=== PATIENT | male | born 1965 | race Caucasian/White ===

== ENCOUNTER → 2017-12-01 | Outpatient (CLI) | payer BC ==
[2017-12-01 12:53] LABS: BASO % 1.1 %; EOS % 5.2 %; EOS ABS # 0.46 K/uL (0-0.5); HEMATOCRIT 44.4 % (42-52); HEMOGLOBIN 15.7 g/dL (14.0-18.0); IG# 0.09 K/uL (0.00-0.02); LYMPH ABS # 2.91 K/uL (1.2-3.4); MEAN CELL VOLUME 88.3 fL (80-100); MEAN CORPUSCULAR HEMOGLOBIN 31.2 pg (25-34); MEAN CORPUSCULAR HGB CONC 35.4 g/dl (32-36); MONO % 13.5 %; MONO ABS # 1.19 K/uL (0.11-0.59); NEUT % 46.2 %; NEUT ABS # 4.07 K/uL (1.4-6.5); PLATELET COUNT 385 K/uL (130-400); RED CELL DISTRIBUTION WIDTH CV 13.3 % (11.5-14.5); RED CELL DISTRIBUTION WIDTH SD 42.8 fL (36.4-46.3); WHITE BLOOD COUNT 8.82 K/uL (4.8-10.8)
[2017-12-01 13:37] LABS: ALBUMIN 3.9 gm/dl (3.4-5.0); ALT/SGPT 46 U/L (12-78); BLOOD UREA NITROGEN 16 mg/dl (7-18); CALCIUM 9.2 mg/dl (8.5-10.1); CARBON DIOXIDE 28 mmol/L (21-32); CHOLESTEROL 214 mg/dl (0-200); CREATININE 0.88 mg/dl (0.60-1.40); GLUCOSE 101 mg/dl (70-99); SODIUM 135 mmol/L (136-145)
[2017-12-01 13:43] LABS: ALKALINE PHOSPHATASE 83 U/L (45-117); AST/SGOT 24 U/L (15-37); LDL CHOLESTEROL CALCULATED 115 mg/dl; TOTAL PROTEIN 7.6 gm/dl (6.4-8.2)
== END | disposition home or self-care (01) ==
LOC: C.LABBFT 11:00
PROVIDERS: ATTEND Internal Medicine
DX: R00.2 Palpitations (principal)

== ENCOUNTER → 2017-12-30 | Outpatient (CLI) | payer BC ==
[2017-12-30 12:49] LABS: ALT/SGPT 52 U/L (12-78); AST/SGOT 32 U/L (15-37); BLOOD UREA NITROGEN 19 mg/dl (7-18); CALCIUM 8.9 mg/dl (8.5-10.1); CARBON DIOXIDE 26 mmol/L (21-32); CREATININE 0.98 mg/dl (0.60-1.40); GLUCOSE 117 mg/dl (70-99); POTASSIUM 2.9 mmol/L (3.5-5.1); SODIUM 137 mmol/L (136-145)
== END | disposition home or self-care (01) ==
LOC: C.LABBFT 07:53
PROVIDERS: ATTEND Nurse Practitioner
DX: E78.5 Hyperlipidemia, unspecified (principal)

== ENCOUNTER → 2018-01-04 | Outpatient (CLI) | payer BC ==
[2018-01-04 12:02] LABS: BASO ABS # 0.08 K/uL (0-0.2); EOS % 4.6 %; EOS ABS # 0.38 K/uL (0-0.5); HEMOGLOBIN 15.2 g/dL (14.0-18.0); IG# 0.09 K/uL (0.00-0.02); LYMPH % 30.6 %; LYMPH ABS # 2.55 K/uL (1.2-3.4); MEAN CELL VOLUME 87.6 fL (80-100); MEAN CORPUSCULAR HGB CONC 35.3 g/dl (32-36); MONO % 14.5 %; MONO ABS # 1.21 K/uL (0.11-0.59); NEUT % 48.2 %; NEUT ABS # 4.01 K/uL (1.4-6.5); PLATELET COUNT 367 K/uL (130-400); RED CELL DISTRIBUTION WIDTH CV 13.2 % (11.5-14.5); RED CELL DISTRIBUTION WIDTH SD 42.2 fL (36.4-46.3); WHITE BLOOD COUNT 8.32 K/uL (4.8-10.8)
== END | disposition home or self-care (01) ==
LOC: C.LABBFT 09:34
PROVIDERS: ATTEND Nurse Practitioner
DX: R10.11 Right upper quadrant pain (principal)

== ENCOUNTER → 2018-03-24 | Outpatient (CLI) | payer BC ==
--- NOTE | 2018-03-29 19:12 | POLYSOMNOGRAPH REPORT ---
CLINICAL DATA: This is a 52-year-old male with BMI of 32.9, referred by Dr. Hermosillo and myself for a sleep study. He had a history of sleep apnea diagnosed over 16 years ago at the [facility]. He had a CPAP titration study and tried CPAP but did not tolerate it because of the noise of the machine. He has been having symptoms of sleep apnea recently. His [place] Sleepiness Score is 12/24. On the evening of 03/24/2018, a home sleep apnea test was performed using a [employer] type 3 monitor. RECORDING RESULTS: Total recording time was 10 hours. Patient's monitoring time and estimated sleep time was 7.1 hours. RESPIRATORY DATA: Severe sleep apnea was documented. The JOANNE was 48.6. There were 166 obstructive apneic episodes and 178 hypopneic episodes. The longest respiratory event was 60 seconds. OXIMETRY DATA: Significant hypoxemia was seen. Oxygen vanessa was 69%. Mean saturation was 90%. Time below 89% was 110 minutes. HEART RATE DATA: Heart rates ranged from 46 to 57 beats per minute. SNORING DATA: Snoring was recorded throughout the night. IMPRESSION: Severe sleep apnea/hypopnea with significant nocturnal hypoxemia. RECOMMENDATIONS: The patient should be considered for a repeat sleep study with CPAP and another trial of CPAP. If that is not tolerated, then consideration of an oral appliance could be considered. SAMUELD
== END | disposition home or self-care (01) ==
LOC: C.NEUR 07:45
PROVIDERS: ATTEND Internal Medicine Pulmonary Disease
DX: R53.83 Other fatigue (principal)

== ENCOUNTER → 2018-04-13 | Outpatient (CLI) | payer BC ==
--- NOTE | 2018-04-13 14:05 | PAP/PSG TECHNICIAN REPORT ---
[facility] Laster Hand Polysomnogram Report Study name: None Report date: 04/13/2018 Study date: 04/13/2018 Referring Physician: Florencio Davis M.D. Name: MOODY DANIELS Interpreting Physician: Florencio Davis M.D. Date of : 1965 Laster Hand: Genna Carrasquillo RPSGT. Sex: Male Age: 52 StudyType: PSG Weight: 211 lbs Height: 52 years, Height 5' 7" Neck Circum: BMI: 33.04 Medications: Advil, Amlodipine Besylate 10mg, ASA 81mg, Carvedilol 6.25mg, Hydrochlorothiazide 25mg, Nitrostat 0.4mg, Potassium Chloride ER 20meq, Ranitidine HCL 300mg, Rosuvastatin Calcium 10mg Patient History Patient has a history of BARRERA, but was intolerant to c-pap therapy at that time. Patient had increased symptoms and was re-evaluated using an at home sleep study. His AHI was 48.6 on that study. He is willing to try c-pap therapy again, not sure if he will be able to do it. ESS=12 Parameters Monitored NPSG: E1-M2, E2-M1, Fp1-M2, Fp2-M1, F3-M2, F4-M2, F4-M1, C3-M2, C4-M2, C4-M1, O1-M2, O2-M2, O2-M1, T3-M2, T4-M1, P3-M2, P4-M1, CHIN1, CHIN2, HR, EKG, Legs, PFLOW, SNOR, FLOW, CFLOW, Tidal Volume, THOR, ABDO, SpO2, PLTH, CPRESS, ETCO2 Wave, ETCO2, pH Sleep Architecture Sleep Stages Time at Lights Off 8:43:16 AM STAGES Time (min.) TST (%) Time at Lights On 1:07:46 PM Wake 66.5 -- Total Recording Time (TRT) 265.00 min. N1 25.0 13 Total Sleep Period (TSP) 246.0 min. N2 122.5 62 Total Sleep Time (TST) 198.0min. N3 20.0 10 Awake Time 67.0 min. REM 30.5 15 Wake after Sleep Onset 50.0 min. Sleep Efficiency (SE) 75 % Sleep Onset Latency (DEV) 16.5 min. Number of Stage 1 Shifts None Awakenings 23 Stage Changes 89 Number of REM periods 3 REM 30.5 15 REM Latency 57.0 min. NREM 167.5 85 Body Position Analysis Supine Right Left Side Prone Vertical Total Sleep Time (min.) 177.2 0.0 78.8 78.80 0.0 4.4 Total Sleep Time (%) 60% 0% 40% 40 0% N/A% Total Sleep Time REM (min.) 13.0 0.0 17.4 None 0.0 0.0 Total Sleep Time NREM (min.) 105.7 0.0 61.4 None 0.0 0.0 Intermittent Wake (min.) 58.5 0.0 3.2 None 0.0 4.4 Total Sleep Period (%) 65% None None None None None Arousals Myoclonus (PLM) * Events Count Index Events Count Index Spontaneous 9 3 Events Awake (PLMW) 0 0.0 Respiratory 27 8.2 Events Asleep w/ Arousal (PLMA) 2 0.6 PLM 2 1 Events Asleep w/o Arousal (PLMS) 23 7.0 Snoring 3 1 Total Asleep 25 7.6 Total 41 12 Total 25 6 Respiratory Analysis * CA OA MA CH H RERA Total Count 0 6 0 0 48 0 54 Index 0.0 1.8 0.0 0 14.5 0 16.4 Mean Duration 0.0 22.2 0.0 0.00 19.7 0.0 19.9 Longest Duration 0.0 26.8 0.0 0.00 0.0 0.0 35.1 Respiratory Event Summary Total Supine ~Supine Right Left Prone REM NREM Apneas Count 6 6 0 N/A 0 N/A 0 6 Index 1.8 3 0 N/A 0.0 N/A 0 2 Hypopneas (4% Desat) Count 48 48 0 N/A 0 N/A 1 47 Index 14.5 24.3 0 N/A 0.0 N/A 2.0 16.8 Apneas & All Hypopneas Count 54 54 0 N/A 0 N/A 1 53 Index 16.4 27 0 N/A 0 N/A 2.0 19.0 Respiratory Events (Process Control Board Operator+All Hyp+RERA) Count 54 54 0 N/A 0 N/A 1 53 Index 16.4 27 0 N/A 0.0 N/A 2.0 19.0 Respiratory Related Arousal Count 27 54 0 N/A 0 N/A 0 27 Index 8.2 14 0 N/A 0 N/A 0 10 Snoring Analysis Supine Right Left Prone REM NREM Total Snore duration 2.4 min Snores count 71 N/A 14 N/A 0 85 85 Snore mean duration 1.7 Sec Snores index 36 N/A 11 N/A 0.0 30.4 25.8 TST with snoring (%) 1.2% Desaturation Event Summary: Minimum %SpO2 Event Count Mean/Min/Max Duration(sec.) Desaturation Index % Time In Bed > 90 48 24.8 / 11.8 / 59.8 15.5 71.0 86 - 90 8 21.6 / 12.8 / 36.5 6.5 28.4 81 - 85 0 N/A 0.0 0.5 76 - 80 0 N/A 0.0 0.0 71 - 75 0 N/A 0.0 0.0 66 - 70 0 N/A 0.0 0.0 61 - 65 0 N/A 0.0 0.0 56 - 60 0 N/A 0.0 0.0 51 - 55 0 N/A 0.0 0.0 < 50 0 N/A 0.0 0.0 Total REM NREM Awake <50% 0.0 min. 0.0 min. 0.0 min. 0.0 min. 51 - 60% 0.0 min. 0.0 min. 0.0 min. 0.0 min. 61 - 70% 0.0 min. 0.0 min. 0.0 min. 0.0 min. 71 - 80% 0.1 min. 0.0 min. 0.1 min. 0.0 min. 81 - 90% 75.7 min. 7.5 min. 60.7 min. 7.5 min. 91 - 100% 186.0 min. 23.0 min. 106.6 min. 56.3 min. Average 92 92 92 93 Minimum SpO2 75 88 75 85 Desaturation Event Index 11.3 2.0 17.6 0.0 # Desat. Events below 89% 40 1 39 0 Time(%) with Saturation below 89% 6.6 0.1 5.4 1.1 Time(min.) with Saturation below 89% 17.3 0.3 14.0 3.0 Time (mins) REM (mins) NREM (mins) % of TST SpO2 Below 90% 48 1 N47 18.3 SpO2 Below 88% 14 0 0 3 Heart Rate Analysis Min (bpm) Max (bpm) Average (bpm) Awake 48 79 58 NREM 48 85 56 REM 48 68 55 Overall 48 85 56 Supplemental O2 Values Minimum O2 level: None Value Start Time End Time Laster Hand Comments Mr. Daniels struggled at first to wear mask and wanted to not do test. After some coaxing and asking him to just sit up and watch TV holding the mask on, he was able to eventually wear c-pap and fall asleep. Mr. Daniels slept in the supine, left and right positions, he did have HOB slightly elevated for comfort. No cardiac events or myoclonus were noted. Patient did very well for about 3 hours and then woke up. After waking up, Mr Daniels started to struggle with mask and pressure. Bi-pap was tried for a brief amount of time, but patient liked c-pap better. He tried to fall back to sleep for about an hour =, but was just unable to stay asleep and started struggling. He needed to use restroom and wanted to end test stating that he was done. Mr. Daniels did state that he slept better than he thought he would and that it was much later in the day than he thought it would be. After speaking to Mr. Daniels, he seems very willing to try c-pap at home. A Resmed Mirage Quattro full face mask size medium was used during titration, but patient stated at the end of the test, that he thinks that it may be a little small, he may require a wide mask. I do believe a c-pap of 7 would be a good starting pressure for patient with him utilizing the ramp mode. This was the pressure he slept the longest at and did enter REM, and did very well. The final report will be interpreted and signed by a sleep physician. The completed report will then be placed in thepatient medical record. Therapy Event: Therapy (cm H20) 4 5 6 7 8 8/5 10/6 Total Time at Pressure (min.) 29.1 27.8 48.6 133.0 12.4 0.9 12.8 TST at Pressure (min.) 6.8 16.7 46.1 118.5 7.3 0.9 1.8 # Periods 2 6 4 4 4 1 1 Sleep Onset (min.) 16.5 2.9 0.0 0.0 0.0 0.0 0.0 REM Onset (min.) N/A N/A 37.2 0.0 N/A N/A N/A Sleep Efficiency % 23 60 94 89 58 100 14 Wakefulness (%) 76.6 40.0 5.1 10.9 41.1 0.0 85.9 Wakefulness (min.) 22.3 11.1 2.5 14.5 5.1 0.0 11.0 NREM 1 (%) 18.8 15.8 7.7 5.8 20.2 17.9 7.8 NREM 1 (min.) 5.5 4.4 3.7 7.8 2.5 0.2 1.0 NREM 2 (%) 4.7 44.1 62.0 54.5 38.7 82.1 6.2 NREM 2 (min.) 1.4 12.3 30.1 72.4 4.8 0.7 0.8 NREM 3 (%) 0.0 0.0 20.6 7.5 0.0 0.0 0.0 NREM 3 (min.) 0.0 0.0 10.0 10.0 0.0 0.0 0.0 REM (%) 0.0 0.0 4.6 21.3 0.0 0.0 0.0 REM (min.) 0.0 0.0 2.2 28.3 0.0 0.0 0.0 # Arousals 3 2 9 19 7 1 0 Arousal Index 26.4 7.2 11.7 9.6 57.7 70.2 0.0 # Snore 1 16 27 33 6 1 1 Snore Index 8.8 57.6 35.1 16.7 49.4 70.2 33.4 AHI 61.6 32.4 19.5 7.1 49.4 70.2 66.7 AHI Supine 62.1 32.4 19.6 21.3 49.4 70.2 66.7 AHI Non-Supine N/A N/A N/A 0.0 N/A N/A N/A NREM AHI 61.6 32.4 20.5 8.6 49.4 70.2 66.7 REM AHI N/A N/A 0.0 2.1 N/A N/A N/A RDI 61.6 32.4 19.5 7.1 49.4 70.2 66.7 # Obstructive 0 0 1 4 0 0 1 # Central Ap 0 0 0 0 0 0 0 # Mixed 0 0 0 0 0 0 0 # Hypopneas 7 9 14 10 6 1 1 RERAS 0 0 0 0 0 0 0 Total Respiratory Events 7 9 15 14 6 1 2 Time Below SpO2 89.00% (min.) 1.6 2.9 4.8 3.4 1.1 0.4 0.1 Mean NREM SpO2 (%) 91 90 90 93 91 90 94 Mean REM SpO2 (%) N/A N/A 90 93 N/A N/A N/A Mean Sleep SpO2 (%) 91 90 90 93 91 90 94 Min NREM SpO2 (%) 86 85 83 75 84 86 85 Min REM SpO2 (%) N/A N/A 89 88 N/A N/A N/A Position Supine (min.) 6.8 16.7 45.9 39.4 7.3 0.9 1.8 Position Non-supine (min.) 0.0 0.0 0.0 78.8 0.0 0.0 0.0 LM Index Sleep 26.4 10.8 9.1 2.5 33.0 70.2 66.7 LM Index NREM 26.4 10.8 9.6 3.3 33.0 70.2 66.7 LM Index REM N/A N/A 0.0 0.0 N/A N/A N/A Mean Heart Rate (bpm) 58 58 59 55 53 51 53 Min Heart Rate (bpm) 52 50 49 48 48 50 49
--- NOTE | 2018-04-19 08:18 | POLYSOMNOGRAPH REPORT ---
CLINICAL DATA: A 52-year-old male with BMI of 33 referred by Sarah Boggs PA-C; myself; and Dr. Hermosillo with a history of obstructive sleep apnea and CPAP intolerance. He was reevaluated via home sleep apnea test and his AHI was 48.6. SLEEP ARCHITECTURE: Total sleep period was 246 minutes. Total sleep time was 198 minutes divided between 167.5 minutes of non-REM sleep and 30.5 minutes of REM sleep. Sleep latency was 16.5 minutes. REM latency was 57 minutes. Sleep efficiency was 75%. Wake after sleep onset was 50 minutes. Sleep consisted of stage N1 13%, stage N2 62%, stage N3 10%, and REM 15%. AROUSAL DATA: 41 arousals were recorded for an index of 12 per hour. PLM DATA: 25 limb movements during sleep were noted for an index of 7.6 with arousal index of 0.6 per hour. RESPIRATORY DATA: The AHI was 16.4. There were 6 obstructive apneic episodes. The longest duration of apnea was 26.8 seconds. There were 48 hypopneic episodes with mean duration of 19.7 seconds. OXIMETRY DATA: Nocturnal hypoxemia was seen. Oxygen vanessa was 75% during non-REM sleep. Mean saturation was 92%. Time below 88% was 14 minutes. EKG: Heart rate ranged from 48-85 beats per minute. No arrhythmias were noted. PRODUCT HANDLER'S COMMENTS: The patient struggled at first to wear the mask and did not want to proceed on with the test. However, he started holding the mask on while watching TV and eventually was able to fall asleep. He slept in the supine, left, and right positions with the head of bed elevated. He did well for a while for almost 3 hours before awakening. After awakening, he struggled with the mask and with the pressure. BiPAP was tried for a short time, but he liked CPAP better. He continued to struggle to fall asleep. He used a ResMed Mirage Quattro full face mask, size medium. His best pressure setting was at 7 cm water pressure. At that pressure, he slept for 118.5 minutes with an AHI of 7. Attempts at higher pressures led to very high AHIs and intolerance of CPAP. IMPRESSION: Severe sleep apnea/hypopnea improved on continuous positive airway pressure 7 cm water pressure using a ResMed Mirage Quattro full face mask, size medium. RECOMMENDATIONS: The patient should be started on the above-noted treatment regimen and seen back in followup to document efficacy and compliance. Use of a sleeping aid such as generic Lunesta 2-3 mg nightly may be of help fpr 2 weeks to improve [email or web address]
== END | disposition home or self-care (01) ==
LOC: C.NEUR 07:59
PROVIDERS: ATTEND Physician Assistant Medical
DX: G47.33 Obstructive sleep apnea (adult) (pediatric) (principal)

== ENCOUNTER 2019-11-07 02:48 | Observation (INO) ==
[2019-11-07] MEDS ORDERED: SODIUM CHLORIDE 0.9% 1000ML 1,000 ML IV SCH (03:15)
[2019-11-07 03:34] LABS: Basophils # (auto) 0.05 K/uL (0-0.2); Basophils % (auto) 0.5 %; Eosinophils # (auto) 0.36 K/uL (0-0.5); Eosinophils % (auto) 3.6 %; Hematocrit (blood only) 44.4 % (42-52); Hemoglobin 15.7 g/dL (14.0-18.0); Immature Granulocytes # (auto) 0.13 K/uL (0.00-0.02); Immature Granulocytes % (auto) 1.3 %; Lymphocytes # (auto) 3.16 K/uL (1.2-3.4); Lymphocytes % (auto) 31.7 %; Mean Corpuscular Hemoglobin 31.5 pg (25-34); Mean Corpuscular Hgb Conc 35.4 g/dL (32-36); Mean Platelet Volume 10.6 fL (7.4-10.4); Monocytes # (auto) 1.06 K/uL (0.11-0.59); Monocytes % (auto) 10.6 %; Neutrophils # (auto) 5.22 K/uL (1.4-6.5); Neutrophils % (auto) 52.3 %; Platelet Count 339 K/uL (130-400); RDW Standard Deviation 42.2 fL (36.4-46.3); Red Blood Count 4.99 M/uL (4.7-6.1); White Blood Count 9.98 K/uL (4.8-10.8)
[2019-11-07 03:41] LABS: Partial Thromboplastin Time 25.9 Seconds (21.0-31.0); Prothrombin Time 10.2 Seconds (9.0-12.0)
[2019-11-07 04:14] LABS: Alanine Aminotransferase 57 U/L (12-78); Albumin Level 3.6 gm/dl (3.4-5.0); Alkaline Phosphatase 74 U/L (45-117); Aspartate Aminotransferase 31 U/L (15-37); BUN Creatinine Ratio 20.7 (10-20); Bilirubin,Total 0.3 mg/dl (0.2-1); Blood Urea Nitrogen 23 mg/dl (7-18); Calcium 8.5 mg/dl (8.5-10.1); Carbon Dioxide 27 mmol/L (21-32); Chloride 103 mmol/L (98-107); Creatinine Clr Calc Pharmacy 87.7 ml/min; Est GFR (African American) 88.1; Globulin 3.6 gm/dl (2.5-4.0); Glucose 107 mg/dl (70-99); Lipase 161 U/L (73-393); Magnesium 2.1 mg/dl (1.8-2.4); Potassium 3.3 mmol/L (3.5-5.1); Sodium 140 mmol/L (136-145); Total Protein 7.2 gm/dl (6.4-8.2); Troponin I < 0.015 ng/ml (0-0.045)
[2019-11-07 04:18] LABS: Lyme Ab IgG w/WB Rflx Negative (Negative); Lyme Ab IgM w/WB Rflx Negative (Negative)
[2019-11-07 04:41] LABS: Appearance Urine Clear (Clear); Bilirubin Urine Negative (Negative); Blood Urine Negative (Negative); Color Urine Yellow; Glucose Urine UA Negative (Negative); Ketones Urine Negative (Negative); Leukocyte Esterase Urine Negative (Negative); Nitrite Urine Negative (Negative); Protein Urine Negative (Negative); Specific Gravity Urine 1.013 (1.000-1.030); Urobilinogen Urine Negative (Negative)
--- NOTE | 2019-11-07 05:12 | Emergency Department Note ---
History of Present Illness General Chief complaint: Arrhythmia/Palpitations Stated complaint: IRREGULAR HEARTBEAT Time Seen by Provider: 11/07/19 02:56 History of Present Illness Maximum Pain Intensity: 2 This is a 53-year-old male presenting to the emergency department for evaluation of strange sensation in his left side chest. The patient feels like his heart is "flip flopping" [id number]. He is also complaining of long pauses where he feels like his heart has stopped beating. The patient has had intermittent symptoms like this over the past few weeks, although they tend to resolve very quickly. He feels like his symptoms are distinctly worse tonight, prompting his presentation to the ER. The patient does have a past history of coronary artery disease, atherosclerosis, and cardiac stent. The stenting occurred at the age of [age] years old and was performed in the [place] area. He has followed with Dr. Colindres locally for cardiology. He does not report any obvious chest pain tonight, stating that he does have some left shoulder pain at baseline, and he is unable to tell if this is his chronic pain or a new finding. He did have one episode of brief pain down into the left elbow and left arm, but this was only for a fleeting moment before resolving. He does take aspirin on a daily basis. He has not had recent fevers or chills. No known exposure to disease. Home Medications Home Medications Medication Instructions Recorded Confirmed Type nitroglycerin 0.4 mg sublingual 0.4 mg SL UD PRN #25 tab 04/01/19 11/07/19 History tablet rosuvastatin 10 mg PO DAILY 04/04/19 11/07/19 History aspirin 81 mg PO DAILY 04/29/19 11/07/19 History omeprazole 20 mg PO QAM 05/11/19 11/07/19 History ibuprofen 200 mg tablet 200 mg PO TID PRN tab 06/15/19 11/07/19 History amlodipine 10 mg tablet 10 mg PO DAILY 07/19/19 11/07/19 History carvedilol 12.5 mg tablet 12.5 mg PO BID #180 tab 08/29/19 11/07/19 Rx hydrochlorothiazide 25 mg tablet 25 mg PO QPM #90 tab 08/29/19 11/07/19 Rx potassium chloride 20 mEq 20 meq PO TID #270 tab 08/29/19 11/07/19 Rx tablet,extended release Allergies Allergy/AdvReac Type Severity Reaction Status Date / Time Penicillins AdvReac Mild Rash Verified 11/07/19 04:16 Past Med/Surg History Medical History CAD (coronary artery disease) s/p single stent, 2000. Negative stress echo 2015. Chronic back pain COMPRESSED DISC IN LOWER BACK Closed head injury WORK ACCIDENT 1994 "OUT FOR 3 DAYS", LIFE FLIGHTED TO [facility]. No long-term deficits. GERD (gastroesophageal reflux disease) Hyperlipidemia Hypertension Migraine Obstructive sleep apnea CPAP "USES RARELY" Osteoarthritis Palpitations Correlated with PVCs on Holter in the past. Restless leg syndrome Surgical History H/O thumb surgery RT TENDON REPAIR History of colonoscopy History of esophagogastroduodenoscopy (EGD) History of heart artery stent 1 STENT PLACED 2000 AT [facility] History of surgical procedure on mouth biopsy right buccal leukoplakia 04/29/19 History of tooth extraction Social History Preferred Language: Peruvian Communication Ability: Effective Twister Hand Required: No Beliefs That Will Affect Care: None Current Living Situation: Spouse Feels Safe at Home: Yes Smoking Status: Current every day smoker Tobacco Type: cigarettes and smokeless tobacco ; Cigarettes Per Day: 4 ; Second Hand Exposure: Yes ; Hx Alcohol Use: Yes Alcohol type: beer Hx Substance Use: No Review of Systems A total of 10 systems reviewed and were otherwise negative Physical Exam Vital Signs Vital Signs - 24 hr 11/07/19 04:00 11/07/19 04:41 11/07/19 05:17 Pulse Rate [Apical] 74 39 L 40 L Respiratory Rate 18 18 Blood Pressure [Right Arm] 133/80 131/83 Blood Pressure Mean [Right Arm] 97 99 Pulse Oximetry 92 94 Oxygen Delivery Method Room Air Room Air VITALS: Vitals are noted on the nurse's note and reviewed by myself. Vital signs with occasional marked bradycardia GENERAL: Well-developed, well-nourished, white male, who is in no acute distress and resting comfortably. Patient is cooperative with the examination. HEAD: Normocephalic atraumatic. EYES: Pupils equal round and reactive to light and accommodation. Conjunctivae without injection, sclerae without icterus. Extraocular movements intact. MOUTH: Mucous membranes moist. Tonsils are not enlarged. Pharynx without erythema, blood, or exudate. Uvula midline. Airway patent. NECK: Supple without nuchal rigidity. No lymphadenopathy. No thyromegaly. Cervical spine is nontender. HEART: Irregular rate with several dropped sinus beats LUNGS: Clear to auscultation bilaterally without wheezes, rales or rhonchi. No retractions or accessory muscle use. ABDOMEN: Positive normal bowel sounds x 4. Soft, nontender, without masses or organomegaly. No guarding or rebound tenderness. MUSCULOSKELETAL: No muscle atrophy, erythema, or edema noted. Full range of motion in all extremities. NEURO: Patient was alert and oriented to person place and time. CN II through XII grossly intact. SKIN: The skin was without rashes, erythema, edema, or bruising. Capillary refill less than 2 seconds. Course Administered Medications Aspirin (Ecotrin Ectab) 81 mg PO DAILY ESTEE Stop: 12/07/19 08:59 Last Admin: 11/07/19 07:52 Dose: 81 mg Documented by: [id number] Carvedilol (Coreg) 6.25 mg PO BID ESTEE Stop: 12/07/19 20:59 Last Admin: 11/07/19 20:35 Dose: 6.25 mg Documented by: [id number] Heparin Sodium (Porcine) (Heparin Sodium (Porcine)) 5,000 units SQ Q12 ESTEE Stop: 12/07/19 08:59 Last Admin: 11/07/19 20:34 Dose: 5,000 units Documented by: [id number] Cosigned by: [id number] Admin: 11/07/19 07:53 Dose: 5,000 units Documented by: [id number] Cosigned by: [id number] Lisinopril (Zestril) 40 mg PO HS ESTEE Stop: 12/07/19 20:59 Last Admin: 11/07/19 20:34 Dose: 40 mg Documented by: [id number] Pantoprazole Sodium (Protonix) 40 mg PO QAM ESTEE Stop: 12/07/19 08:59 Last Admin: 11/07/19 07:52 Dose: 40 mg Documented by: [id number] Potassium Chloride (Klor-Con M20) 20 meq PO BID ESTEE Stop: 12/07/19 08:59 Last Admin: 11/07/19 20:34 Dose: 20 meq Documented by: [id number] Admin: 11/07/19 07:53 Dose: 20 meq Documented by: [id number] Rosuvastatin Calcium (Crestor) 10 mg PO HS ESTEE Stop: 12/07/19 11:59 Last Admin: 11/07/19 20:33 Dose: 10 mg Documented by: [id number] Discontinued Medications Sodium Chloride (Nss 1000ml) 1,000 mls @ 999 mls/hr IV .Q1H1M ESTEE Stop: 11/07/19 04:15 Last Infusion: 11/07/19 04:22 Dose: 0 mls/hr Documented by: [id number] Admin: 11/07/19 03:21 Dose: 999 mls/hr Documented by: [id number] Potassium Chloride (K Saul / Wtr) 10 meq in 100 mls @ 100 mls/hr IV Q1H ESTEE Stop: 11/07/19 09:59 Last Admin: 11/07/19 07:14 Dose: Not Given Documented by: [id number] Miscellaneous Information (Nursing To Pharmacy Communication) 1 ea N/A ONE ONE Stop: 11/07/19 08:03 Last Admin: 11/07/19 10:58 Dose: Not Given Documented by: [id number] Medical Decision Making Differential Diagnosis Differential diagnosis includes, but is not limited to: Myocardial infarction, dysrhythmia, pericarditis, pneumothorax, aortic aneurysm/dissection, DVT/PE, anxiety, GERD, PUD, electrolyte imbalance, thyroid disorder, pneumonia, bronchitis, pancreatitis, and others Laboratory Data Result diagrams: 11/07/19 03:21 11/07/19 19:11 Lab Results 11/07/19 11/07/19 11/07/19 Range/Units 03:21 03:21 03:21 WBC 9.98 (4.8-10.8) K/uL RBC 4.99 (4.7-6.1) M/uL Hgb 15.7 (14.0-18.0) g/dL Hct 44.4 (42-52) % MCV 89.0 (80-100) fL MCH 31.5 (25-34) pg MCHC 35.4 (32-36) g/dL RDW Std Deviation 42.2 (36.4-46.3) fL RDW Coeff of Robby 13.0 (11.5-14.5) % Plt Count 339 (130-400) K/uL MPV 10.6 H (7.4-10.4) fL Immature Gran % (Auto) 1.3 % Neut % (Auto) 52.3 % Lymph % (Auto) 31.7 % [place] % (Auto) 10.6 % Eos % (Auto) 3.6 % Baso % (Auto) 0.5 % Immature Gran # (Auto) 0.13 H (0.00-0.02) K/uL Neut # (Auto) 5.22 (1.4-6.5) K/uL Lymph # (Auto) 3.16 (1.2-3.4) K/uL [place] # (Auto) 1.06 H (0.11-0.59) K/uL Eos # (Auto) 0.36 (0-0.5) K/uL Baso # (Auto) 0.05 (0-0.2) K/uL PT 10.2 (9.0-12.0) Seconds INR 1.0 (0.9-1.1) APTT 25.9 (21.0-31.0) Seconds PTT Ratio 1.0 Sodium 140 (136-145) mmol/L Potassium 3.3 L (3.5-5.1) mmol/L Chloride 103 (98-107) mmol/L Carbon Dioxide 27 (21-32) mmol/L Anion Gap 10.0 (3-11) BUN 23 H (7-18) mg/dl Creatinine 1.09 (0.6-1.4) mg/dl Est Cr Clr Drug Dosing 87.7 ml/min Est GFR ( Amer) 88.1 Est GFR (Non-Af Amer) 76.0 BUN/Creatinine Ratio 20.7 H (10-20) Glucose 107 H (70-99) mg/dl Estimat Average Glucose mg/dl Hemoglobin A1c (4.5-5.6) % Calcium 8.5 (8.5-10.1) mg/dl Magnesium 2.1 (1.8-2.4) mg/dl Total Bilirubin 0.3 (0.2-1) mg/dl AST 31 (15-37) U/L ALT 57 (12-78) U/L Alkaline Phosphatase 74 (45-117) U/L Troponin I < 0.015 (0-0.045) ng/ml Total Protein 7.2 (6.4-8.2) gm/dl Albumin 3.6 (3.4-5.0) gm/dl Globulin 3.6 (2.5-4.0) gm/dl Albumin/Globulin Ratio 1.0 (0.9-2) Triglycerides (0-150) mg/dl Cholesterol (0-200) mg/dl LDL Cholesterol, Calc mg/dl VLDL Cholesterol, Calc mg/dl HDL Cholesterol mg/dl Cholesterol/HDL Ratio Lipase 161 (73-393) U/L TSH 2.740 (0.300-4.500) uIu/ml Specimen Hemolysis Urine Color Urine Appearance (Clear) Urine pH (4.5-7.5) Ur Specific [place] (1.000-1.030) Urine Protein (Negative) Urine Glucose (UA) (Negative) Urine Ketones (Negative) Urine Blood (Negative) Urine Nitrite (Negative) Urine Bilirubin (Negative) Urine Urobilinogen (Negative) Ur Leukocyte Esterase (Negative) Lyme Disease IgG Ab (Negative) Lyme Disease IgM Ab (Negative) Hepatitis C Ab Screen (Neg) 11/07/19 11/07/19 11/07/19 Range/Units 03:21 03:21 03:21 WBC (4.8-10.8) K/uL RBC (4.7-6.1) M/uL Hgb (14.0-18.0) g/dL Hct (42-52) % MCV (80-100) fL MCH (25-34) pg MCHC (32-36) g/dL RDW Std Deviation (36.4-46.3) fL RDW Coeff of Robby (11.5-14.5) % Plt Count (130-400) K/uL MPV (7.4-10.4) fL Immature Gran % (Auto) % Neut % (Auto) % Lymph % (Auto) % [place] % (Auto) % Eos % (Auto) % Baso % (Auto) % Immature Gran # (Auto) (0.00-0.02) K/uL Neut # (Auto) (1.4-6.5) K/uL Lymph # (Auto) (1.2-3.4) K/uL [place] # (Auto) (0.11-0.59) K/uL Eos # (Auto) (0-0.5) K/uL Baso # (Auto) (0-0.2) K/uL PT (9.0-12.0) Seconds INR (0.9-1.1) APTT (21.0-31.0) Seconds PTT Ratio Sodium (136-145) mmol/L Potassium (3.5-5.1) mmol/L Chloride (98-107) mmol/L Carbon Dioxide (21-32) mmol/L Anion Gap (3-11) BUN (7-18) mg/dl Creatinine (0.6-1.4) mg/dl Est Cr Clr Drug Dosing ml/min Est GFR ( Amer) Est GFR (Non-Af Amer) BUN/Creatinine Ratio (10-20) Glucose (70-99) mg/dl Estimat Average Glucose 120 mg/dl Hemoglobin A1c 5.8 H (4.5-5.6) % Calcium (8.5-10.1) mg/dl Magnesium (1.8-2.4) mg/dl Total Bilirubin (0.2-1) mg/dl AST (15-37) U/L ALT (12-78) U/L Alkaline Phosphatase (45-117) U/L Troponin I (0-0.045) ng/ml Total Protein (6.4-8.2) gm/dl Albumin (3.4-5.0) gm/dl Globulin (2.5-4.0) gm/dl Albumin/Globulin Ratio (0.9-2) Triglycerides 322 H (0-150) mg/dl Cholesterol 154 (0-200) mg/dl LDL Cholesterol, Calc 46 mg/dl VLDL Cholesterol, Calc 64 mg/dl HDL Cholesterol 44 mg/dl Cholesterol/HDL Ratio 4 Lipase (73-393) U/L TSH (0.300-4.500) uIu/ml Specimen Hemolysis Urine Color Urine Appearance (Clear) Urine pH (4.5-7.5) Ur Specific R[place] (1.000-1.030) Urine Protein (Negative) Urine Glucose (UA) (Negative) Urine Ketones (Negative) Urine Blood (Negative) Urine Nitrite (Negative) Urine Bilirubin (Negative) Urine Urobilinogen (Negative) Ur Leukocyte Esterase (Negative) Lyme Disease IgG Ab Negative (Negative) Lyme Disease IgM Ab Negative (Negative) Hepatitis C Ab Screen (Neg) 11/07/19 11/07/19 Range/Units 03:21 04:33 WBC (4.8-10.8) K/uL RBC (4.7-6.1) M/uL Hgb (14.0-18.0) g/dL Hct (42-52) % MCV (80-100) fL MCH (25-34) pg MCHC (32-36) g/dL RDW Std Deviation (36.4-46.3) fL RDW Coeff of Robby (11.5-14.5) % Plt Count (130-400) K/uL MPV (7.4-10.4) fL Immature Gran % (Auto) % Neut % (Auto) % Lymph % (Auto) % [place] % (Auto) % Eos % (Auto) % Baso % (Auto) % Immature Gran # (Auto) (0.00-0.02) K/uL Neut # (Auto) (1.4-6.5) K/uL Lymph # (Auto) (1.2-3.4) K/uL [place] # (Auto) (0.11-0.59) K/uL Eos # (Auto) (0-0.5) K/uL Baso # (Auto) (0-0.2) K/uL PT (9.0-12.0) Seconds INR (0.9-1.1) APTT (21.0-31.0) Seconds PTT Ratio Sodium (136-145) mmol/L Potassium (3.5-5.1) mmol/L Chloride (98-107) mmol/L Carbon Dioxide (21-32) mmol/L Anion Gap (3-11) BUN (7-18) mg/dl Creatinine (0.6-1.4) mg/dl Est Cr Clr Drug Dosing ml/min Est GFR ( Amer) Est GFR (Non-Af Amer) BUN/Creatinine Ratio (10-20) Glucose (70-99) mg/dl Estimat Average Glucose mg/dl Hemoglobin A1c (4.5-5.6) % Calcium (8.5-10.1) mg/dl Magnesium (1.8-2.4) mg/dl Total Bilirubin (0.2-1) mg/dl AST (15-37) U/L ALT (12-78) U/L Alkaline Phosphatase (45-117) U/L Troponin I (0-0.045) ng/ml Total Protein (6.4-8.2) gm/dl Albumin (3.4-5.0) gm/dl Globulin (2.5-4.0) gm/dl Albumin/Globulin Ratio (0.9-2) Triglycerides (0-150) mg/dl Cholesterol (0-200) mg/dl LDL Cholesterol, Calc mg/dl VLDL Cholesterol, Calc mg/dl HDL Cholesterol mg/dl Cholesterol/HDL Ratio Lipase (73-393) U/L TSH (0.300-4.500) uIu/ml Specimen Hemolysis Urine Color Yellow Urine Appearance Clear (Clear) Urine pH 6.0 (4.5-7.5) Ur Specific [place] 1.013 (1.000-1.030) Urine Protein Negative (Negative) Urine Glucose (UA) Negative (Negative) Urine Ketones Negative (Negative) Urine Blood Negative (Negative) Urine Nitrite Negative (Negative) Urine Bilirubin Negative (Negative) Urine Urobilinogen Negative (Negative) Ur Leukocyte Esterase Negative (Negative) Lyme Disease IgG Ab (Negative) Lyme Disease IgM Ab (Negative) Hepatitis C Ab Screen Neg (Neg) ECG Data Attestation: I personally reviewed and interpreted this ECG as follows: Indication: + bradycardia Additional Comments: Sinus rhythm with sinus arrhythmia at [address] elevation QT interval normal at 422 When compared with EKG of 05 April 2019, no significant change was found MDM Narrative Physical exam and history were performed. Nursing notes, EMR, and Medication L ist were personally reviewed. Patient appears to have vague symptoms of arrhythmia/palpitations in his chest. He does have a significant cardiac disease with stenting performed at the age of 38. There is a strong family history of cardiac disease as well. IV access was established and labs were obtained. The patient was hydrated with normal saline and placed on the clinical account liaison. EKG was performed, and the patient has marked sinus arrhythmia on the EKG. He has several periods of near bigeminy, followed by missed beats. The patient's blood work is as above and was reviewed. He does not have a significantly elevated white blood cell count, gross anemia, bandemia, or significant electrolyte imbalance. Lipase and transaminases are not diagnostic. TSH shows euthyroid state. Troponin x1 is negative. Urine is without evidence of infection. Lyme is negative. Chest x-ray was reviewed by myself and my attending showing no acute process. The patient continued to have significant arrhythmia on the clinical account liaison. He appears to have multiple missed beats, and will occasionally dip into a rate in the 30s. The patient is asymptomatic when this happens, but admittedly he is laying in the bed during these episodes. Overall the patient does not appear well for discharge home. He has a significant cardiac history and seems to have worsening symptoms with significant bradycardia. The case was discussed with the on-call hospitalist team who agreed to evaluate the patient here in the ER. Please see their dictation for further patient course, plan, and disposition. The chart was completed utilizing [employer] Speech Voice Recognition Software. Grammatical errors, random word insertions, pronoun errors, and incomplete sentences are an occasional consequence of this system due to software limitations, ambient noise, and hardware issues. Any formal questions or karime rns about the content, text, or information contained within the body of this dictation should be directly addressed to the provider for clarification. . Impression & Plan Symptomatic bradycardia, Heart palpitations Discharge Plan Visit Data *Final* Discharge Date/Time: 11/07/19 06:11 Chief Complaint: Arrhythmia/Palpitations Stated Complaint: IRREGULAR HEARTBEAT ED Provider: Og Maloney ED Midlevel Provider: Bryant De Luna Discharge Problem: Symptomatic bradycardia, Heart palpitations Patient Disposition: Admitted As Inpatient Discharge Instructions Interventions: ED Discharge Assessment Last Done: 11/07/19 06:11
--- NOTE | 2019-11-07 06:23 | History & Physical Report ---
Date of Service November 07, 2019 Assessment & Plan (1) Palpitations: Palpitations/symptomatic bradycardia/CAD/hypertension/hypokalemia- The patient will be admitted to telemetry for serial cardiac enzymes, serial EKG's, cardiac rhythm monitoring and a 2-D echocardiogram with Dopplers. Patient is not always regular by taking his carvedilol due to working third shift. Patient is hypokalemic because he is on HCTZ and also has not regular by taking his potassium pills. Patient tends to drink more alcohol on the weekend. Decrease carvedilol from 12.5 mg p.o. twice daily to 6.25 mg p.o. twice daily with dose starting this evening approximately 12 hours. Hold HCTZ. Continue amlodipine Continue potassium chloride 20 mEq p.o. 3 times daily for now. Give potassium chloride 10 mEq riders x3. Recheck a BMP at around 5:00 this evening. Consult cardiology, reports that he follows with Dr. Colindres. Present on Admission?: Yes (2) Symptomatic bradycardia: See above Present on Admission?: Yes (3) CAD (coronary artery disease): See above Present on Admission?: Yes (4) Hypertension: See above Present on Admission?: Yes (5) Hypokalemia: Likely secondary to being on hydrochlorothiazide, and patient reports that he is not necessarily compliant with taking all of his potassium pills as directed. Present on Admission?: Yes (6) Hyperlipidemia: Continue rosuvastatin 10 mg p.o. daily. Check a fasting lipid panel Present on Admission?: Yes (7) Esophageal dysmotility: GERD/esophageal dysmotility/dyspepsia- Likely being aggravated by the ibuprofen and potassium that he is taking. Continue omeprazole 20 mg p.o. every morning. Present on Admission?: Yes (8) Dyspepsia: See above Present on Admission?: Yes (9) Impaired fasting glucose: Patient needs reinforcement on appropriate low carbohydrate diet. Check hemoglobin A1c. Present on Admission?: Yes History of Present Illness Chief Complaint: The patient presents to the emergency department with worsening palpitations since he went to work about 10:00 last evening and has persisted for the past 6 hours. 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 He reports that he has intermittently had palpitations over the past few months, but reports that this evening has lasted significantly longer and has been more intense. He denies any change in oral intake, but does report drinking an average of 2 beers a day, more on weekends. He continues to smoke but not necessarily on a daily basis. His times for taking his meds oral medications is sometimes variable due to working third shift. In the emergency department, his heart rate was noted to go down into the upper 30s to low 40s on several occasions, but his blood pressure was maintained during this time, but he did feel the palpitations at that time. He denies any associated lightheadedness or dizziness or presyncopal symptoms. Allergies Allergy/AdvReac Type Severity Reaction Status Date / Time Penicillins AdvReac Mild Rash Verified 11/07/19 04:16 Home Medications Home Medications Medication Instructions Recorded Confirmed Type nitroglycerin 0.4 mg sublingual 0.4 mg SL UD PRN #25 tab 04/01/19 11/07/19 History tablet rosuvastatin 10 mg PO DAILY 04/04/19 11/07/19 History aspirin 81 mg PO DAILY 04/29/19 11/07/19 History omeprazole 20 mg PO QAM 05/11/19 11/07/19 History ibuprofen 200 mg tablet 200 mg PO TID PRN tab 06/15/19 11/07/19 History amlodipine 10 mg tablet 10 mg PO DAILY 07/19/19 11/07/19 History carvedilol 12.5 mg tablet 12.5 mg PO BID #180 tab 08/29/19 11/07/19 Rx hydrochlorothiazide 25 mg tablet 25 mg PO QPM #90 tab 08/29/19 11/07/19 Rx potassium chloride 20 mEq 20 meq PO TID #270 tab 08/29/19 11/07/19 Rx tablet,extended release Past Med/Surg History Medical History CAD (coronary artery disease) s/p single stent, 2000. Negative stress echo 2015. Chronic back pain COMPRESSED DISC IN LOWER BACK Closed head injury WORK ACCIDENT 1994 "OUT FOR 3 DAYS", LIFE FLIGHTED TO [facility]. No long-term deficits. GERD (gastroesophageal reflux disease) Hyperlipidemia Hypertension Migraine Obstructive sleep apnea CPAP "USES RARELY" Osteoarthritis Palpitations Correlated with PVCs on Holter in the past. Restless leg syndrome Surgical History H/O thumb surgery RT TENDON REPAIR History of colonoscopy History of esophagogastroduodenoscopy (EGD) History of heart artery stent 1 STENT PLACED 2000 AT [facility] History of surgical procedure on mouth biopsy right buccal leukoplakia 04/29/19 History of tooth extraction Social History Preferred Language: Belgian Communication Ability: Effective Ecmo Specialist Required: No Beliefs That Will Affect Care: None Current Living Situation: Spouse Feels Safe at Home: Yes Smoking Status: Current every day smoker Tobacco Type: cigarettes and smokeless tobacco ; Cigarettes Per Day: 2-3 CIGS DAILY ; Second Hand Exposure: Yes ; Hx Alcohol Use: Yes Alcohol type: beer Hx Substance Use: No Review of Systems Review of Systems: The patient denies chest pain, shortness of breath, dyspnea on exertion, cough, lower extremity swelling, sore throat, fevers, chills, sweats, weight change, fatigue, nausea, vomiting, diarrhea , constipation, abdominal pain, pelvic pain, blood in urine or stool, dysuria, urinary frequency or urgency, lightheadedness, dizziness, headache, memory loss, loss of consciousness, rash, abnormal bruising or bleeding, imbalance, focal or generalized weakness, numbness or tingling in arms or legs, generalized arthralgias or myalgias, back or neck pain, or night sweats. The review of systems is otherwise negative other than for that already noted above, and at least 10 systems have been reviewed. Physical Exam Physical Exam: The patient is awake, alert and oriented 3, well developed and well nourished, normocephalic and atraumatic, lying in bed and in no acute distress. HEENT--PERRL, EOMI, mucous membranes and oropharynx normal. Neck--supple. No JVD. No bruits. Thyroid normal, trachea midline, no adenopathy. Heart--normal S1 and S2. No murmurs, rubs or gallops. Lungs--clear bilaterally, no respiratory distress, no accessory muscle use. Abdomen--normal bowel sounds and soft. Nontender. Nondistended. Obese. Extremities--no cyanosis or clubbing. No edema. There are good distal pulses b/l. Dermatologic--normal skin turgor, normal color, no abnormal lymph nodes, no rash. Neurologic--cranial nerves II through XII grossly intact. Rheumatologic--normal range of motion. Psychiatric--normal affect. Results & Data Vital Signs (Past 12 Hours) Vital Signs Temp Pulse Pulse Resp BP BP Pulse Ox 11/07/19 05:17 40 L 18 131/83 94 11/07/19 04:41 39 L 11/07/19 04:00 74 18 133/80 92 11/07/19 03:18 60 18 95 11/07/19 02:52 98.1 F 77 16 159/100 H 95 Laboratory Results Laboratory Results WBC 9.98 K/uL (4.8-10.8) 11/07/19 03:21 RBC 4.99 M/uL (4.7-6.1) 11/07/19 03:21 Hgb 15.7 g/dL (14.0-18.0) 11/07/19 03:21 Hct 44.4 % (42-52) 11/07/19 03:21 MCV 89.0 fL (80-100) 11/07/19 03:21 MCH 31.5 pg (25-34) 11/07/19 03:21 MCHC 35.4 g/dL (32-36) 11/07/19 03:21 RDW Std Deviation 42.2 fL (36.4-46.3) 11/07/19 03:21 RDW Coeff of Robby 13.0 % (11.5-14.5) 11/07/19 03:21 Plt Count 339 K/uL (130-400) 11/07/19 03:21 MPV 10.6 fL (7.4-10.4) H 11/07/19 03:21 Immature Gran % (Auto) 1.3 % 11/07/19 03:21 Neut % (Auto) 52.3 % 11/07/19 03:21 Lymph % (Auto) 31.7 % 11/07/19 03:21 [place] % (Auto) 10.6 % 11/07/19 03:21 Eos % (Auto) 3.6 % 11/07/19 03:21 Baso % (Auto) 0.5 % 11/07/19 03:21 Immature Gran # (Auto) 0.13 K/uL (0.00-0.02) H 11/07/19 03:21 Neut # (Auto) 5.22 K/uL (1.4-6.5) 11/07/19 03:21 Lymph # (Auto) 3.16 K/uL (1.2-3.4) 11/07/19 03:21 [place] # (Auto) 1.06 K/uL (0.11-0.59) H 11/07/19 03:21 Eos # (Auto) 0.36 K/uL (0-0.5) 11/07/19 03:21 Baso # (Auto) 0.05 K/uL (0-0.2) 11/07/19 03:21 PT 10.2 Seconds (9.0-12.0) 11/07/19 03: INR 1.0 (0.9-1.1) 11/07/19 03:21 APTT 25.9 Seconds (21.0-31.0) 11/07/19 03:21 PTT Ratio 1.0 11/07/19 03:21 Sodium 140 mmol/L (136-145) 11/07/19 03:21 Potassium 3.3 mmol/L (3.5-5.1) L 11/07/19 03:21 Chloride 103 mmol/L (98-107) 11/07/19 03:21 Carbon Dioxide 27 mmol/L (21-32) 11/07/19 03:21 Anion Gap 10.0 (3-11) 11/07/19 03:21 BUN 23 mg/dl (7-18) H 11/07/19 03:21 Creatinine 1.09 mg/dl (0.6-1.4) 11/07/19 03:21 Est Cr Clr Drug Dosing 87.7 ml/min 11/07/19 03:21 Est GFR ( Amer) 88.1 11/07/19 03:21 Est GFR (Non-Af Amer) 76.0 11/07/19 03:21 BUN/Creatinine Ratio 20.7 (10-20) H 11/07/19 03:21 Glucose 107 mg/dl (70-99) H 11/07/19 03:21 Calcium 8.5 mg/dl (8.5-10.1) 11/07/19 03:21 Magnesium 2.1 mg/dl (1.8-2.4) 11/07/19 03:21 Total Bilirubin 0.3 mg/dl (0.2-1) 11/07/19 03:21 AST 31 U/L (15-37) 11/07/19 03:21 ALT 57 U/L (12-78) 11/07/19 03:21 Alkaline Phosphatase 74 U/L (45-117) 11/07/19 03:21 Troponin I < 0.015 ng/ml (0-0.045) 11/07/19 03:21 Total Protein 7.2 gm/dl (6.4-8.2) 11/07/19 03:21 Albumin 3.6 gm/dl (3.4-5.0) 11/07/19 03:21 Globulin 3.6 gm/dl (2.5-4.0) 11/07/19 03:21 Albumin/Globulin Ratio 1.0 (0.9-2) 11/07/19 03:21 Lipase 161 U/L (73-393) 11/07/19 03:21 TSH 2.740 uIu/ml (0.300-4.500) 11/07/19 03:21 Specimen Hemolysis 11/07/19 03:21 Urine Color Yellow 11/07/19 04:33 Urine Appearance Clear (Clear) 11/07/19 04:33 Urine pH 6.0 (4.5-7.5) 11/07/19 04:33 Ur Specific Becker 1.013 (1.000-1.030) 11/07/19 04:33 Urine Protein Negative (Negative) 11/07/19 04:33 Urine Glucose (UA) Negative (Negative) 11/07/19 04:33 Urine Ketones Negative (Negative) 11/07/19 04:33 Urine Blood Negative (Negative) 11/07/19 04:33 Urine Nitrite Negative (Negative) 11/07/19 04:33 Urine Bilirubin Negative (Negative) 11/07/19 04:33 Urine Urobilinogen Negative (Negative) 11/07/19 04:33 Ur Leukocyte Esterase Negative (Negative) 11/07/19 04:33 Lyme Disease IgG Ab Negative (Negative) 11/07/19 03:21 Lyme Disease IgM Ab Negative (Negative) 11/07/19 03:21 Code Status & VTE Plan Code Status Full code VTE Prophylaxis Plan VTE Prophylaxis will be ordered: Yes PG Care Time/CCT Total # of Minutes Spent Total Time Spent with Patient: Total time spent is greater than 50% in coordination of care (as documented) at patient's floor/unit and/or counseling patient: Coding Level of Care Code 79497 OBS Care - Level 3 Diagnoses Palpitations R00.2 Symptomatic bradycardia R00.1 CAD (coronary artery disease) I25.10 Hypertension I10 Hypokalemia E87.6 Hyperlipidemia E78.5 Esophageal dysmotility K22.4 Dyspepsia R10.13 Impaired fasting glucose R73.01
[2019-11-07 06:41] LABS: Estimated Average Glucose 120 mg/dl; Hemoglobin A1C 5.8 % (4.5-5.6)
--- NOTE | 2019-11-07 06:45 | XRay Report ---
XR chest 1V portable HISTORY: 53 years-old Male palpitations acute cardiac palpitations COMPARISON: CT abdomen and pelvis 07/29/2019 TECHNIQUE: Portable AP view of the chest FINDINGS: Cardiac silhouette is mildly enlarged. Coronary arterial stent graft. No pneumothorax, pleural effusi on, focal airspace consolidation or overt pulmonary edema. Bones of the chest appear grossly intact. IMPRESSION: No acute process. ACT 112: Negative or not required by law. The above report was generated using voice recognition software. It may contain grammatical, syntax o r spelling errors. Electronically signed by: Kit Bermudez M.D. 11/07/2019 6:43 AM
[2019-11-07] MEDS ORDERED: ONDANSETRON INJ 2 MG/ML 2 ML VIAL IV PRN (06:46)
[2019-11-07] MEDS ORDERED: NITROGLYCERIN SL 0.4 MG/TAB TAB SL PRN (06:46)
[2019-11-07] MEDS ORDERED: ACETAMINOPHEN 325 MG TAB PO PRN (06:46)
[2019-11-07] MEDS ORDERED: MAGNESIUM HYDROXIDE SUSP 30 ML UDC PO PRN (06:46)
[2019-11-07] MEDS ORDERED: ALUMINUM/MAGNESIUM SUSP 30 ML UDC PO PRN (06:46)
[2019-11-07 06:50] LABS: Chol HDL Ratio 4; Cholesterol 154 mg/dl (0-200); HDL Cholesterol 44 mg/dl; LDL Cholesterol Calculated 46 mg/dl; Triglycerides 322 mg/dl (0-150); VLDL Cholesterol 64 mg/dl
[2019-11-07] MEDS ORDERED: POTASSIUM CHLORIDE / WTR 10 MEQ/100 ML PLCT IV SCH (07:00)
[2019-11-07] MEDS: PANTOprazole 40 MG TAB PO SCH (07:52)
[2019-11-07] MEDS: ASPIRIN 81 MG ECTAB PO SCH (07:52)
[2019-11-07] MEDS: POTASSIUM CHLORIDE 20 MEQ TABCR PO SCH ×2 (07:53→20:34)
[2019-11-07] MEDS: HEPARIN SOD 5,000 UNIT/0.5 ML VIAL SQ SCH ×2 (07:53→20:34)
[2019-11-07] MEDS ORDERED: Nursing to Pharmacy Communication ONE (08:02)
[2019-11-07] MEDS ORDERED: AMLODIPINE BESYLATE 5 MG TAB PO SCH ×2 (09:00→21:00)
--- NOTE | 2019-11-07 10:07 | XCELERA ---
[id number] \\[email or web address]\[id number]_[email or web address]\[id number]
--- NOTE | 2019-11-07 10:30 | Cardiology Consultation ---
Date of Consultation November 07, 2019 Assessment & Plan (1) Bradycardia: Mr. 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 His Palpitations have been worse in recent days -- he describes a "flip-flopping" in his chest and he complains of long pauses where he feels like his heart has stopped beating. The patient has had intermittent symptoms like this over the past few weeks, although they tended to resolve very quickly. He feels like his symptoms were distinctly worse and more intense last evening and into the night when he was at work -- which prompted his ER visit and admission. -- Correct underlying hypokalemia. -- Agree with lowering overall carvedilol dose due to bradycardia. -- Strongly consider switching from Carvedilol 6.25 mg b.i.d. to Coreg CR 20 mg one tablet daily -- which will hopefully make non-compliance less of an issue. -- Consider stopping HCTZ in favor of a Potassium Sparing Diuretic to prevent hypokalemia -- and will allow him to stop his potassium supplement -- he frequently misses doses of this. -- Patient is experiencing palpitations with both his PVCs and with his sinus arrhythmia. -- Reduce beer consumption, increase aerobic activities. (2) Hypokalemia: Was 3.3 mmol/L on admission: -- Continue to supplement. -- Consider switching to a potassium sparing diuretic. (3) Palpitations: As outlined above. (4) CAD (coronary artery disease): Quiescent: -- Continue Aspirin 81 mg daily. -- Continue Coreg as suggested above. -- Continue Crestor 10 mg daily. -- Continue Amlodipine 10 mg daily. (5) Circadian rhythm sleep disorder, shift work type: Working flow coordinator, alcohol intake, and noncompliance with CPAP are likely contributing to his palpitations. Supervising Physician Co-Signing Physician Notes Jeronimo Antonio MD History of Present Illness Requesting Physician: Meng Kennedy DO Attending Physician: Jeronimo Antonio MD History of Present Illness Mr. 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 The patient has had intermittent symptoms like this over the past few weeks, although they tended to resolve very quickly. He feels like his symptoms were distinctly worse and more intense last evening and into the night when he was at work -- which prompted his ER visit. Patient denies any associated symptoms with his palpitations -- specifically denying any associated nausea, vomiting, diaphoresis, lightheadedness, syncope, weakness, or dizziness. Patient has never had a synco pal episode. Patient denies any exertional chest pain, heaviness, tightness, or pressure. He denies any SOB, unusual OSMAN, or recent changes in his exertional tolerance. Patient was hypokalemic in the ER with a Serum K of 3.3 mmol/L. Patient admits to missing his potassium supplement frequently, and occasionally missing doses of Carvedilol. Also he tends to have a few beers every day, and he typically drinks more beers/day on the weekends than he does during the week. He and his are moving into a new home -- but he does not feel anxious or stressed out by this move. Thus far his Troponin I is < 0.015 ng/ml. His EKG on admission shows sinus rhythm with marked sinus arrhythmia at a rate of 61 bpm. No acute changes. Telemetry shows sinus rhythm with sinus arrhythmia, sinus bradycardia down to the mid-30's, occasional PVC's. His Coreg dose was reduced to 6.25 mg b.i.d. on admission, due to bradycardia. He has also received KCL. Patient states that he's had palpitations for years and historically they have corresponded with PVC's on previous cardiac monitoring. In 2001 he was having stomach issues described as bloating. He had GI evaluation and eventually this led to a stress test. He states that the stress test was reported to him as being normal but they did a cardiac catheterization just to be sure according to his recollection. He recalls being told that he had a 70% blockage and underwent PCI. He does not recall a vessel and no records are available as his prior cardiology office states that they have been destroyed. His GI symptoms persisted despite PCI. He has had the following Cardiac Studies/Procedures: CARDIAC CATHETERIZATION 2001: -- PCI performed in elective situation. Records have been destroyed per prior Cardiology office. NUCLEAR STRESS 07/12/2004: -- No myocardial ischemia or infarction. EF 63%. Normal wall motion. 83% MPHR. -- Exercised 13 minutes 10 seconds on Tejas protocol. ECHOCARDIOGRAM 07/12/2004: -- Normal left ventricular size and systolic function. -- No significant valvular abnormalities. Normal RVSP. STRESS ECHOCARDIOGRAM 10/27/2011: -- Negative for ischemia at 85% MPHR. -- Negative EKG. No chest pain. -- 10 minutes 49 seconds Tejas protocol. -- Normal LV systolic function and wall motion. -- LVEF 60%. -- No significant valvular abnormalities. STRESS ECHOCARDIOGRAM 01/01/2016: -- Negative for ischemia at 77% MPHR and 10 Mets. -- Resting echo with normal LV size and systolic function. -- LVEF 65-70%. -- No regional wall motion abnormalities. -- No LVH. -- No significant valvular pathology. HOLTER MONITOR 12/07/2017: -- Sinus rhythm with an average rate of 73 bpm. -- Range is 50-96 bpm. -- Isolated PACs in couplets. -- Isolated nonsustained episodes of SVT to 8 beats. -- Isolated PVCs. -- No complex ventricular arrhythmias. -- Symptoms skips, flutter correlated with isolated PVC. ECHOCARDIOGRAM 06/23/18: -- Normal LV size, wall motion and systolic function. -- LVEF 65-70%. -- Mild concentric LVH. -- No significant valvular abnormalities. Allergies Allergy/AdvReac Type Severity Reaction Status Date / Time Penicillins AdvReac Mild Rash Verified 11/07/19 04:16 Home Medications Home Medications Medication Instructions Recorded Confirmed Type nitroglycerin 0.4 mg sublingual 0.4 mg SL UD PRN #25 tab 04/01/19 11/07/19 History tablet rosuvastatin 10 mg PO DAILY 04/04/19 11/07/19 History aspirin 81 mg PO DAILY 04/29/19 11/07/19 History omeprazole 20 mg PO QAM 05/11/19 11/07/19 History ibuprofen 200 mg tablet 200 mg PO TID PRN tab 06/15/19 11/07/19 History amlodipine 10 mg tablet 10 mg PO DAILY 07/19/19 11/07/19 History carvedilol 12.5 mg tablet 12.5 mg PO BID #180 tab 08/29/19 11/07/19 Rx hydrochlorothiazide 25 mg tablet 25 mg PO QPM #90 tab 08/29/19 11/07/19 Rx potassium chloride 20 mEq 20 meq PO TID #270 tab 08/29/19 11/07/19 Rx tablet,extended release Patient History Medical History CAD (coronary artery disease) s/p single stent, 2000. Negative stress echo 2015. Chronic back pain COMPRESSED DISC IN LOWER BACK Closed head injury WORK ACCIDENT 1994 "OUT FOR 3 DAYS", LIFE FLIGHTED TO [facility]. No long-term deficits. GERD (gastroesophageal reflux disease) Hyperlipidemia Hypertension Migraine Obstructive sleep apnea CPAP "USES RARELY" Osteoarthritis Palpitations Correlated with PVCs on Holter in the past. 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 HEENT: Head is atraumatic, normocephalic. EOM's intact. Facies symmetric. No perioral cyanosis. NECK: No JVD. JVP is at the level of the clavicle sitting upright. Carotid upstrokes are + 2 bilaterally. No bruits are noted. CHEST/LUNGS: Clear to auscultation throughout all lung guevara. No wheezes, rales, or crackles. CVS: S1 and S2 are bradycardic at 54 bpm. No obvious murmurs, gallops, or rubs. PMI is nonpalpable. No lifts, heaves, or thrills. No abdominal aortic or renal bruits. ABDOMINAL EXAM: Bowel sounds are present. No masses, organomegaly, or tenderness. EXTREMITIES: No clubbing or cyanosis. No edema. Intact posterior tibial and radial pulses bilaterally. NEUROLOGIC EXAM: Patient is awake, alert, and oriented. Pleasant and cooperative. Answers questions appropriately. Speech is clear. Normal movement in all 4 extremities. Gait pattern is unremarkable. EKG 11/07/2019: -- Sinus rhythm with marked sinus arrhythmia at a rate of 61 bpm. -- No acute changes. TELEMETRY: -- Sinus rhythm with sinus arrhythmia, sinus bradycardia down to the mid-30's, and occasional PVC's. Results & Data ([facility]) Vital Signs (Past 12 Hours) Vital Signs Temp Pulse Pulse Pulse Resp BP BP 11/07/19 08:00 74 11/07/19 07:41 36.7 C 57 L 17 115/63 11/07/19 06:25 36.6 C 50 L 18 150/91 H 11/07/19 06:06 74 18 120/50 L 11/07/19 05:17 40 L 18 131/83 11/07/19 04:41 39 L 11/07/19 04:00 74 18 133/80 11/07/19 03:18 60 18 11/07/19 02:52 36.7 C 77 16 159/100 H Pulse Ox 11/07/19 08:00 11/07/19 07:41 94 11/07/19 06:25 96 11/07/19 06:06 97 11/07/19 05:17 94 11/07/19 04:41 11/07/19 04:00 92 11/07/19 03:18 95 11/07/19 02:52 95 Laboratory Results Laboratory Results - last 24 hr 11/07/19 11/07/19 11/07/19 03:21 03:21 03:21 WBC 9.98 RBC 4.99 Hgb 15.7 Hct 44.4 MCV 89.0 MCH 31.5 MCHC 35.4 RDW Std Deviation 42.2 RDW Coeff of Robby 13.0 Plt Count 339 MPV 10.6 H Immature Gran % (Auto) 1.3 Neut % (Auto) 52.3 Lymph % (Auto) 31.7 Leake % (Auto) 10.6 Eos % (Auto) 3.6 Baso % (Auto) 0.5 Immature Gran # (Auto) 0.13 H Neut # (Auto) 5.22 Lymph # (Auto) 3.16 Leake # (Auto) 1.06 H Eos # (Auto) 0.36 Baso # (Auto) 0.05 PT 10.2 INR 1.0 APTT 25.9 PTT Ratio 1.0 Sodium 140 Potassium 3.3 L Chloride 103 Carbon Dioxide 27 Anion Gap 10.0 BUN 23 H Creatinine 1.09 Est Cr Clr Drug Dosing 87.7 Est GFR ( Amer) 88.1 Est GFR (Non-Af Amer) 76.0 BUN/Creatinine Ratio 20.7 H Glucose 107 H Estimat Average Glucose Hemoglobin A1c Calcium 8.5 Magnesium 2.1 Total Bilirubin 0.3 AST 31 ALT 57 Alkaline Phosphatase 74 Troponin I < 0.015 Total Protein 7.2 Albumin 3.6 Globulin 3.6 Albumin/Globulin Ratio 1.0 Triglycerides Cholesterol LDL Cholesterol, Calc VLDL Cholesterol, Calc HDL Cholesterol Cholesterol/HDL Ratio Lipase 161 TSH 2.740 Specimen Hemolysis Urine Color Urine Appearance Urine pH Ur Specific [place] Urine Protein Urine Glucose (UA) Urine Ketones Urine Blood Urine Nitrite Urine Bilirubin Urine Urobilinogen Ur Leukocyte Esterase Lyme Disease IgG Ab Lyme Disease IgM Ab Hepatitis C Ab Screen 11/07/19 11/07/19 11/07/19 03:21 03:21 03:21 WBC RBC Hgb Hct MCV MCH MCHC RDW Std Deviation RDW Coeff of Robby Plt Count MPV Immature Gran % (Auto) Neut % (Auto) Lymph % (Auto) [place]ake % (Auto) Eos % (Auto) Baso % (Auto) Immature Gran # (Auto) Neut # (Auto) Lymph # (Auto) [place]ake # (Auto) Eos # (Auto) Baso # (Auto) PT INR APTT PTT Ratio Sodium Potassium Chloride Carbon Dioxide Anion Gap BUN Creatinine Est Cr Clr Drug Dosing Est GFR ( Amer) Est GFR (Non-Af Amer) BUN/Creatinine Ratio Glucose Estimat Average Glucose 120 Hemoglobin A1c 5.8 H Calcium Magnesium Total Bilirubin AST ALT Alkaline Phosphatase Troponin I Total Protein Albumin Globulin Albumin/Globulin Ratio Triglycerides 322 H Cholesterol 154 LDL Cholesterol, Calc 46 VLDL Cholesterol, Calc 64 HDL Cholesterol 44 Cholesterol/HDL Ratio 4 Lipase TSH Specimen Hemolysis Urine Color Urine Appearance Urine pH Ur Specific [place] Urine Protein Urine Glucose (UA) Urine Ketones Urine Blood Urine Nitrite Urine Bilirubin Urine Urobilinogen Ur Leukocyte Esterase Lyme Disease IgG Ab Negative Lyme Disease IgM Ab Negative Hepatitis C Ab Screen 11/07/19 11/07/19 11/07/19 03:21 04:33 11:13 WBC RBC Hgb Hct MCV MCH MCHC RDW Std Deviation RDW Coeff of Robby Plt Count MPV Immature Gran % (Auto) Neut % (Auto) Lymph % (Auto) [place] % (Auto) Eos % (Auto) Baso % (Auto) Immature Gran # (Auto) Neut # (Auto) Lymph # (Auto) [place] # (Auto) Eos # (Auto) Baso # (Auto) PT INR APTT PTT Ratio Sodium Potassium Chloride Carbon Dioxide Anion Gap BUN Creatinine Est Cr Clr Drug Dosing Est GFR ( Amer) Est GFR (Non-Af Amer) BUN/Creatinine Ratio Glucose Estimat Average Glucose Hemoglobin A1c Calcium Magnesium Total Bilirubin AST ALT Alkaline Phosphatase Troponin I Pending Total Protein Albumin Globulin Albumin/Globulin Ratio Triglycerides Cholesterol LDL Cholesterol, Calc VLDL Cholesterol, Calc HDL Cholesterol Cholesterol/HDL Ratio Lipase TSH Specimen Hemolysis Urine Color Yellow Urine Appearance Clear Urine pH 6.0 Ur Specific [place] 1.013 Urine Protein Negative Urine Glucose (UA) Negative Urine Ketones Negative Urine Blood Negative Urine Nitrite Negative Urine Bilirubin Negative Urine Urobilinogen Negative Ur Leukocyte Esterase Negative Lyme Disease IgG Ab Lyme Disease IgM Ab Hepatitis C Ab Screen Neg Medications Administered Active Medications Generic Name Dose Route Start Last Admin Trade Name Freq PRN Reason Stop Dose Admin Acetaminophen 650 mg 11/07/19 06:46 Tylenol PO 12/07/19 06:45 Q4H PRN Pain or Fever Al Hydrox/Mg Hydrox/Simethicone 15 ml 11/07/19 06:46 Maalox PO 12/07/19 06:45 Q4H PRN Dyspepsia Amlodipine Besylate 10 mg 11/07/19 21:00 Norvasc PO 12/07/19 08:59 HS ESTEE Aspirin 81 mg 11/07/19 09:00 11/07/19 07:52 Ecotrin Ectab PO 12/07/19 08:59 81 mg DAILY ESTEE Administration Carvedilol 6.25 mg 11/07/19 21:00 Coreg PO 12/07/19 20:59 BID ESTEE Heparin Sodium (Porcine) 5,000 units 11/07/19 09:00 11/07/19 07:53 Heparin Sodium (Porcine) SQ 12/07/19 08:59 5,000 units Q12 ESTEE Administration Magnesium Hydroxide 30 ml 11/07/19 06:46 Milk Of Magnesia PO 12/07/19 06:45 Q12H PRN Constipation Nitroglycerin 0.4 mg 11/07/19 06:46 Nitrostat SL 12/07/19 06:45 UD PRN Chest Pain Ondansetron HCl 4 mg 11/07/19 06:46 Zofran IV 12/07/19 06:45 Q6H PRN Nausea Pantoprazole Sodium 40 mg 11/07/19 09:00 11/07/19 07:52 Protonix PO 12/07/19 08:59 40 mg QAM ESTEE Administration Potassium Chloride 20 meq 11/07/19 09:00 11/07/19 07:53 Klor-Con M20 PO 12/07/19 08:59 20 meq BID ESTEE Administration Rosuvastatin Calcium 10 mg 11/07/19 21:00 Crestor PO 12/07/19 11:59 HS [facility] PG Care Time/CCT Total # of Minutes Spent Total Time Spent with Patient: Total time spent is greater than 50% in coordination of care (as documented) at patient's floor/unit and/or counseling patient: Coding Level of Care Code 72924 Inpt Consult Level 4 Diagnoses Bradycardia R00.1 Hypokalemia E87.6 Palpitations R00.2 CAD (coronary artery disease) I25.10 Circadian rhythm sleep disorder, shift work type G47.26
--- NOTE | 2019-11-07 11:03 | Electrocardiogram Report ---
Test Reason : Blood Pressure : / mmHG Vent. Rate : 061 BPM Atrial Rate : 061 BPM P-R Int : 194 ms QRS Dur : 092 ms QT Int : 422 ms P-R-T Axes : 044 029 029 degrees QTc Int : 424 ms Sinus rhythm with marked sinus arrhythmia Otherwise normal ECG When compared with ECG of 05-APR-2019 08:30, No significant change was found Confirmed by Jeronimo Antonio ([id number]) on 11/07/2019 11:03:07 AM Referred By: REFERRED SELF Confirmed By:Jeronimo Antonio
[2019-11-07] MEDS ORDERED: ROSUVASTATIN CALCIUM 10 MG TAB PO SCH ×2 (12:00→21:00)
--- NOTE | 2019-11-07 13:05 | History & Physical Bridge Note ---
Date of Service November 07, 2019 History & Physical Bridge Note I have examined the patient, reviewed the History & Physical and in the interval since the performance of the History & Physical I have noted the following changes of clinical significance: patient doing well, discussed with cardiology, appreciate their input discussed with him the HCTZ, which he was prescribed years ago when the amlodipine caused his ankles to swell we discussed trying to simplify his regimen, instead of taking amlodipine and HC TZ and potassium, will use Lisinopril 40mg daily cardiology plans to convert to long acting Coreg will follow up echo results tentatively plan for discharge tomorrow morning
[2019-11-07 19:45] LABS: BUN Creatinine Ratio 16.8 (10-20); Blood Urea Nitrogen 16 mg/dl (7-18); Calcium 8.3 mg/dl (8.5-10.1); Carbon Dioxide 27 mmol/L (21-32); Chloride 106 mmol/L (98-107); Creatinine Clr Calc Pharmacy 97.2 ml/min; Est GFR (African American) 100.2; Est GFR (Non-African American) 86.4; Glucose 125 mg/dl (70-99); Sodium 138 mmol/L (136-145)
[2019-11-07 19:51] LABS: Troponin I < 0.015 ng/ml (0-0.045)
[2019-11-07] MEDS: carvediloL 6.25 MG TAB PO SCH (20:35)
[2019-11-07] MEDS ORDERED: lisinopriL 40 MG TAB PO SCH (21:00)
[2019-11-08 04:18] LABS: Basophils # (auto) 0.06 K/uL (0-0.2); Basophils % (auto) 0.8 %; Eosinophils # (auto) 0.31 K/uL (0-0.5); Hematocrit (blood only) 44.3 % (42-52); Hemoglobin 15.4 g/dL (14.0-18.0); Immature Granulocytes # (auto) 0.08 K/uL (0.00-0.02); Lymphocytes # (auto) 2.19 K/uL (1.2-3.4); Lymphocytes % (auto) 28.3 %; Mean Corpuscular Hemoglobin 31.3 pg (25-34); Mean Corpuscular Hgb Conc 34.8 g/dL (32-36); Mean Platelet Volume 10.7 fL (7.4-10.4); Monocytes # (auto) 1.05 K/uL (0.11-0.59); Monocytes % (auto) 13.5 %; Neutrophils # (auto) 4.06 K/uL (1.4-6.5); Neutrophils % (auto) 52.4 %; Platelet Count 302 K/uL (130-400); RDW Coefficient of Variation 13.1 % (11.5-14.5); RDW Standard Deviation 43.1 fL (36.4-46.3); Red Blood Count 4.92 M/uL (4.7-6.1); White Blood Count 7.75 K/uL (4.8-10.8)
[2019-11-08 04:35] LABS: Albumin Level 3.3 gm/dl (3.4-5.0); BUN Creatinine Ratio 17.1 (10-20); Blood Urea Nitrogen 14 mg/dl (7-18); Calcium 8.6 mg/dl (8.5-10.1); Carbon Dioxide 29 mmol/L (21-32); Chloride 107 mmol/L (98-107); Creatinine Clr Calc Pharmacy 116.2 ml/min; Est GFR (African American) 115.4; Est GFR (Non-African American) 99.6; Glucose 99 mg/dl (70-99); Magnesium 2.4 mg/dl (1.8-2.4); Potassium 3.2 mmol/L (3.5-5.1); Sodium 140 mmol/L (136-145)
[2019-11-08 04:40] LABS: Phosphorus 3.5 mg/dl (2.5-4.9); Troponin I < 0.015 ng/ml (0-0.045)
[2019-11-08] MEDS: carvediloL 6.25 MG TAB PO SCH (08:06)
[2019-11-08] MEDS: HEPARIN SOD 5,000 UNIT/0.5 ML VIAL SQ SCH (08:06)
[2019-11-08] MEDS: PANTOprazole 40 MG TAB PO SCH (08:07)
[2019-11-08] MEDS: ASPIRIN 81 MG ECTAB PO SCH (08:07)
[2019-11-08] MEDS ORDERED: POTASSIUM CHLORIDE 20 MEQ TABCR PO SCH (09:00)
--- NOTE | 2019-11-08 10:01 | Discharge Summary ---
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 He reports that he has intermittently had palpitations over the past few months, but reports that this evening has lasted significantly longer and has been more intense. He denies any change in oral intake, but does report drinking an average of 2 beers a day, more on weekends. He continues to smoke but not necessarily on a daily basis. His times for taking his meds oral medications is sometimes variable due to working third shift. In the emergency department, his heart rate was noted to go down into the upper 30s to low 40s on several occasions, but his blood pressure was maintained during this time, but he did feel the palpitations at that time. He denies any associated lightheadedness or dizziness or presyncopal symptoms. Principal Diagnosis Symptomatic bradycardia, palpitations Discharge Exam Constitutional WD/WN, vitals as above Eyes PERRL, conjunctivae normal, anicteric sclerae ENMT external ear and nose normal, oropharynx normal Neck trachea midline, no thyromegaly Respiratory normal respiratory effort, lungs clear to auscultation Cardiovascular Rate/Rhythm: regular rhythm and + bradycardic Heart Sounds: normal S1 and normal S2 Extremities: normal capillary refill; no edema Gastrointestinal (Abdomen) normal bowel sounds, soft, nontender, no hepatosplenomegaly Musculoskeletal no cyanosis or clubbing, extremities motor strength 5/5 Skin no rashes, warm and dry Neurologic patellar DTR's 2+ bilat, sensation intact and PERRL, EOMI, accommodation nl, no face palsy, no dysarthria Psychiatric A+Ox3, euthymic affect Lymphatic no cervical or axillary lymphadenopathy Discharge Data Allergies Allergy/AdvReac Type Severity Reaction Status Date / Time Penicillins AdvReac Mild Rash Verified 11/07/19 04:16 Consultations 11/07/19 05:03 ED Decision to Admit Stat 11/07/19 06:46 Consult Cardiology Routine Hospital Course (1) Palpitations: most likely sinus arrhythmia and PVC's no major issues seen on over 24 hours of telemetry evaluated by cardiology, appreciate their recommendations will reduce Coreg to 6.25mg BID from 12.5mg BID attempted to place patient on sustained release Coreg 20mg daily to promote compliance but insurance would not cover potassium low at 3.3 on admission discussed that he takes HCTZ which can lead to low K he says he was started on HCTZ because he had edema with Norvasc discussed that we could simplify his regimen, he agreed, see below in HTN echocardiogram showed preserved EF of 65%, no valve disease cardiology recommends reducing his beer consumption, getting regular exercise discharge to home, follow up closely with PCP and cardiology (2) Symptomatic bradycardia: Coreg reduced to 6.25mg BID from 12.5mg BID, new script sent again, tried to change to sustained release Coreg 20mg daily but insurance would not approve (3) CAD (coronary artery disease): no chest pain or pressure continue antiplatelet therapy (4) Hypertension: on admission he was taking Norvasc 10mg daily, HCTZ, Coreg 12.5mg BID will simplify regimen with Lisinopril, stop Norvasc and HCTZ initially gave him Lisinopril 40mg evening of 11/06, BP was low normal 100-116 systolic this was low for him discussed, decided to lower dose to 20mg daily continue Coreg at 6.25mg BID follow up in one week with BP check with PCP (5) Hypokalemia: Likely secondary to being on hydrochlorothiazide, and patient reports that he is not necessarily compliant with taking all of his potassium pills as directed K is 3.2 today, gave him 40mEq of KCl this morning will start on Lisinopril 20mg daily to help raise potassium hold on oral supplements since it is unclear how much his K will rise with Lisinopril stop HCTZ labs ordered for Thursday11/11/19 (6) Hyperlipidemia: Continue rosuvastatin 10 mg p.o. daily. (7) Esophageal dysmotility: GERD/esophageal dysmotility/dyspepsia- Likely being aggravated by the ibuprofen and potassium that he is taking. Continue omeprazole 20 mg p.o. every morning. (8) Dyspepsia: See above Total Time Total Time Spent Total Time Spent (In Minutes): 35 minutes Total Time Includes: Examination of the Patient, Discharge Planning and Medication Reconciliation Discharge Plan Discharge Items Patient Disposition: Home - Self-Care Reason For Visit: SYMPTOMATIC BRADYCARDIA Discharge Diagnosis: Bradycardia Palpitations Hypokalemia Hypertension Condition on Discharge: Good Goals: blood pressure control follow up lab work Activity: Resume your previous activity Driving/Machine Use: No limitations Weightbearing: Full weightbearing Non-emergency contact: Primary Care Provider and Financial Developer Call non-emergency contact if: you have any medication questions and your symptoms worsen Follow-up/Referrals: Estrada Freire PA-C [Physician Pet Caretaker] - 11/28/19 1:30 pm (3-4 weeks) Hipolito Hermosillo III, MD [Primary Care Provider] - 11/17/19 1:50 pm (Within one week, blood pressure check, labs) Diet: Heart Healthy Ambulatory Orders: Basic Metabolic Panel (Routine) Timeframe: 3 Days Location: Determined by Patient Ordered By: Meng Guzman Attending Provider Instructions: Medications: several changes made to simplify regimen - LISINOPRIL: 20mg daily in the evening, this replaces amlodipine - CARVEDILOL: changed to long acting, 20mg daily in the evening stopped amlodipine, hydrochlorothiazide, potassium Bradycardia, palpitations cardiology feels that palpitations are likely due to several factors noted to have bradycardia (slow heart rate) on monitor as well as PVC's recommend correcting potassium recommend changing Coreg to extended release to promote compliance recommend reducing beer consumption and increasing exercise your echocardiogram was noted to be normal recommend follow up with Dr. Hermosillo in one week, cardiology in 3-4 weeks Hypertension, low potassium changed amlodipine to lisinopril, stopped HCTZ and potassium a side effect of lisinopril is to raise potassium levels will order labs for end of the week to check on potassium level blood pressure stable this morning on the Lisinopril Pending Studies at Discharge: No Stand-Alone Forms: [id number], Work/School Release (Inpt), Smoking Cessation Medications and DC Order Prescriptions: New lisinopril 20 mg tablet 20 mg PO DAILY 30 Days Qty: 30 RF: 1 carvedilol 6.25 mg tablet 6.25 mg PO BID 30 Days Qty: 60 RF: 1 Continued nitroglycerin 0.4 mg tablet, sublingual 0.4 mg SL UD PRN (Reason: Chest Pain) Qty: 25 RF: 0 ibuprofen 200 mg tablet 200 mg PO TID PRN (Reason: fever or pain) RF: 0 omeprazole 20 mg capsule,delayed release(DR/EC) 20 mg PO QAM RF: 0 rosuvastatin 10 mg tablet 10 mg PO DAILY RF: 0 aspirin 81 mg Tablet,Delayed Release (Dr/Ec) 81 mg PO DAILY RF: 0 Discontinued carvedilol 12.5 mg tablet 12.5 mg PO BID Qty: 180 RF: 3 hydrochlorothiazide 25 mg tablet 25 mg PO QPM Qty: 90 RF: 3 potassium chloride 20 mEq tablet extended release 20 meq PO TID Qty: 270 RF: 3 amlodipine 10 mg tablet 10 mg PO DAILY RF: 0 Discharge Orders: Discharge Order (Routine); Ordered 11/08/19 Ordered By: Meng Ovalle/Other Patient Handouts: Bradycardia, Heart Palpitations, Carvedilol tablets, Lisinopril tablets Admission Data Admit Date/Time: 11/07/19 06:00 Attending Provider: Meng Kennedy Admit Provider: Rick Haskins Primary Care Provider: Hipolito Hermosillo III Other Providers: Rick Haskins ; Catalino Colindres. Other Interventions: Discharge Summary Assessment (RN) Last Done: 11/08/19 10:20 DC Date/Time DO NOT enter until pt leaves facility: 11/08/19 10:56 Coding Level of Care Code D/C Day Management >30 mins Diagnoses Palpitations R00.2 Symptomatic bradycardia R00.1 CAD (coronary artery disease) I25.10 Hypertension I10 Hypokalemia E87.6 Hyperlipidemia E78.5 Esophageal dysmotility K22.4 Dyspepsia R10.13
--- NOTE | 2019-11-08 10:58 | Electrocardiogram Report ---
Test Reason : Blood Pressure : / mmHG Vent. Rate : 057 BPM Atrial Rate : 057 BPM P-R Int : 222 ms QRS Dur : 090 ms QT Int : 452 ms P-R-T Axes : 048 035 035 degrees QTc Int : 439 ms Sinus bradycardia with 1st degree A-V block Otherwise normal ECG When compared with ECG of 07-NOV-2019 02:58, No significant change was found Confirmed by Jeronimo Antonio ([id number]) on 11/08/2019 10:58:12 AM Referred By: REFERRED SELF Confirmed By:Jeronimo Antonio
== END 2019-11-08 10:56 | disposition home or self-care (01) ==
LOC: 2S 02:48 → ED 02:48 → SUATTDRO 06:00 → 2S 06:11